=== PATIENT | female | born 1960 | race Caucasian/White ===

== ENCOUNTER 2018-10-26 09:16 | Inpatient (IN) | payer OTHER ==
[2018-10-26] VITALS (17 sets, daily range): BP systolic 81–143; BP diastolic 60–83
[~2018-10-26] VITALS: Ht 162.6 cm; Wt 91.2 kg
[2018-10-26] MEDS ORDERED: SODIUM CHLORIDE 0.9% 1000ML 1,000 ML IV STA (09:21)
[2018-10-26] MEDS ORDERED: ONDANSETRON HCL INJ 2MG/ML 2ML 2 MG/ML VIAL IV ONE ×2 (09:30→10:16)
[2018-10-26] MEDS ORDERED: ASPIRIN 81 MG CHEW TAB PO ONE ×3 (09:30→10:15)
--- NOTE | 2018-10-26 09:39 | NUR ---
DR. FLORES SPEAKING WITH DR. CHAVEZ REGARDING EKG
--- NOTE | 2018-10-26 09:39 | NUR ---
PATIENT PLACED ON BIPHASIC MONITOR
--- NOTE | 2018-10-26 09:40 | NUR ---
CATH TEAM ACTIVATED
[2018-10-26] MEDS ORDERED: CLOPIDOGREL BISULFATE 75 MG TAB PO STA (09:43)
[2018-10-26] MEDS ORDERED: ASPIRIN 325 MG TAB ONE (09:48)
[2018-10-26] MEDS ORDERED: CLOPIDOGREL BISULFATE 75 MG TAB ONE (09:51)
[2018-10-26] MEDS ORDERED: CLOPIDOGREL BISULFATE 300 MG TAB-DO NOT STOCK PO ONE ×2 (10:00→12:15)
--- NOTE | 2018-10-26 10:04 | NUR ---
ANJALI Keller AT BEDSIDE EVALUATING PATIENT AND DISCUSSING HEART CATHETERIZATION WITH PATIENT.
[2018-10-26 10:05] LABS: BASOPHILS % 0.2 % (0.0-1.0); HEMATOCRIT 44.3 % (34.2-44.1); HEMOGLOBIN 15.1 g/dL (12.0-16.0); LYMPHOCYTES # (AUTO) 1.2 (1.0-3.2); LYMPHOCYTES % 10.4 % (18.0-39.1); MEAN CORPUSCULAR HEMOGLOBIN 29.5 pg (28-32); MEAN CORPUSCULAR HGB CONC 34.1 g/dL (31-35); MEAN CORPUSCULAR VOLUME 86.5 fL (81-99); MONOCYTES # (AUTO) 0.2 (0.2-0.8); NEUTROPHILS # (AUTO) 9.6 (2.1-6.9); NEUTROPHILS % 86.9 % (38.7-80.0); PLATELET COUNT 280 x10e3/uL (140-360); RED BLOOD COUNT 5.12 x10e6/uL (3.6-5.1); RED CELL DISTRIBUTION WIDTH 13.4 % (11.7-14.4)
[2018-10-26 10:08] LABS: BILIRUBIN,URINE NEGATIVE (NEGATIVE); CLARITY,URINE CLEAR (CLEAR); COLOR,URINE YELLOW (YELLOW); LEUKOCYTE ESTERASE ,URINE NEGATIVE (NEGATIVE); NITRITE,URINE NEGATIVE (NEGATIVE); PROTEIN,URINE DIPSTICK TRACE (NEGATIVE); URINE UROBILINOGEN 0.2 mg/dL (0.2 - 1)
[2018-10-26 10:10] LABS: KETONES,URINE 2+ (NEGATIVE)
[2018-10-26 10:12] LABS: INR 0.89; PROTHROMBIN TIME 12.5 seconds (11.9-14.5)
[2018-10-26 10:13] LABS: PARTIAL THROMBOPLASTIN TIME 25.6 seconds (23.8-35.5)
[2018-10-26] MEDS ORDERED: MORPHINE SULFATE 2 MG/ML SYR 1ML IV PRN (10:15)
[2018-10-26] MEDS ORDERED: ONDANSETRON HCL INJ 2MG/ML 2ML 2 MG/ML VIAL IV PRN ×2 (10:15→12:00)
[2018-10-26] MEDS ORDERED: METOPROLOL TARTRATE 25 MG TAB PO SCH (10:15)
[2018-10-26] MEDS ORDERED: SODIUM CHLORIDE FLUSH 10 ML SYR INJ PRN (10:15)
[2018-10-26] MEDS ORDERED: NITROGLYCERIN 0.4 MG SUBL SL PRN (10:15)
--- NOTE | 2018-10-26 10:21 | NUR ---
YENY Sandoval, CONSULTING PROPERTY MANAGER AT BESIDE PREPARING PATIENT FOR CONSULTING PROPERTY MANAGER PATIENT ACTIVELY VOMITED 200 CC YELLOW EMESIS, AND HAS BEEN GIVEN ADDITIONAL ZOFRAN 4 MG
[2018-10-26 10:22] LABS: ALANINE AMINOTRANSFERASE 29 IU/L (0-55); ALBUMIN 4.7 g/dL (3.5-5.0); ALBUMIN/GLOBULIN RATIO 1.6 (0.8-2.0); ALKALINE PHOSPHATASE 86 IU/L (40-150); ANION GAP 21.9 mmol/L (8-16); BLOOD UREA NITROGEN 19 mg/dL (7-26); BUN/CREATININE RATIO 26 (6-25); CALCIUM 10.5 mg/dL (8.4-10.2); CARBON DIOXIDE 20 mmol/L (22-29); CHLORIDE 102 mmol/L (98-107); CREATINE KINASE 500 IU/L (29-168); CREATININE, SERUM 0.74 mg/dL (0.57-1.11); EST GLOMERULAR FILTRATION RATE > 60 ML/MIN (60-); GLUCOSE 142 mg/dL (74-118); POTASSIUM 3.9 mmol/L (3.5-5.1); SODIUM 140 mmol/L (136-145)
[2018-10-26 10:23] LABS: BACTERIA,URINE FEW /HPF; EPITHELIAL CELLS,URINE RARE /LPF; RBC,URINE >50 /HPF (0-5); WBC,URINE (MAN) 0-5 /HPF (0-5)
[2018-10-26] MEDS ORDERED: MIDAZOLAM HCL 2 MG/2 ML VIAL ONE (10:24)
--- NOTE | 2018-10-26 10:24 | Diagnostic Imaging Report ---
Examination: Single AP view of the chest. COMPARISON: None. INDICATION: Chest tightness, shortness of breath for 2 weeks IMPRESSION: 1. Lines and Tubes: None 2. Lungs are grossly clear. No consolidation or effusion. 3. Cardiomediastinal silhouette is normal. Pulmonary vasculature is normal. 4. No acute bony abnormalities. Signed by: Dr. Flo Zhu M.D. on 10/26/2018 10:20 AM
--- NOTE | 2018-10-26 10:24 | NUR ---
DR. ESPERANZA CHAVEZ AT [facility] SPEAKING WITH PATIENT
[2018-10-26] MEDS ORDERED: IOPAMIDOL 370 MG/ML 200 ML INFUS..BTL INJ ONE (10:25)
[2018-10-26] MEDS ORDERED: LIDOCAINE HCL 2% LOCAL 20 ML VIAL ONE (10:25)
[2018-10-26] MEDS ORDERED: HEPARIN SOD/SOD CHLORIDE 2,000 ML ONE (10:25)
[2018-10-26] MEDS ORDERED: FENTANYL CITRATE/PF 100MCG/2 ML INJ ONE (10:25)
--- OUTSIDE RECORDS SUMMARY | 2018-10-26 10:34 | XMS REPORT ---
Author Author [facility] Address Unknown Phone Unavailable Care Team Providers Care Anatomic Pathologist Name Role Phone Francisco FLORES Unavailable Unavailable Problems This patient has no known problems. Allergies, Adverse Reactions, Alerts This patient has no known allergies or adverse reactions. Medications This patient has no known medications. Results Test Description Test Time Test Comments Text Results Atomic Results Result Comments CHEST SINGLE (PORTABLE) 2018-10-26 10:20:00 [place] [id number] Patient Name: STEWART BUCIO MR #: [id number] : 1960 Age/Sex: 58/F Req #: [id number] Adm Physician: Ordered by: ALIZA FLORES MD Report #: [id number] Location: ER Room/Bed: Procedure: [id number] DX/CHEST SINGLE (PORTABLE) Exam Date: 10/26/18 Exam Time: 45 REPORT STATUS: Signed Examination: Single AP view of the chest. COMPARISON: None. INDICATION: Chest tightness, shortness of breath for 2 weeks IMPRESSION: 1. Lines and Tubes: None 2. Lungs are grossly clear. No consolidation or effusion. 3. Cardiomediastinal silhouette is normal. Pulmonary vasculature is normal. 4. No acute bony abnormalities. Signed by: Dr. Millicent Zhu M.D. on 10/26/2018 10:20 AM Dictate d By: MILLICENT ZHU MD 1020 Transcribed By: ROCAEL on 10/26/18 1020 COPY TO: ALIZA FLORES MD
[2018-10-26 10:48] LABS: CHOL/HDL RATIO 3.3 (3.0-3.6)
[2018-10-26] MEDS ORDERED: BIVALRIUDIN 250 MG/VIAL VIAL IV ONE (10:48)
[2018-10-26] MEDS ORDERED: SODIUM CHLORIDE 0.9% 50ML 50 ML ONE (10:49)
[2018-10-26] MEDS ORDERED: EPTIFIBATIDE 75mg 100ML 100 ML ONE ×3 (10:55→23:35)
[2018-10-26] MEDS ORDERED: EPTIFIBATIDE 20 ML ONE (10:55)
[2018-10-26] MEDS ORDERED: METOCLOPRAMIDE HCL 10 MG/2ML VIAL ONE (11:00)
[2018-10-26] MEDS ORDERED: ONDANSETRON HCL INJ 2MG/ML 2ML 2 MG/ML VIAL ONE (11:07)
[2018-10-26] MEDS ORDERED: HYDROCODONE/APAP 5MG-325MG TAB PO PRN (12:00)
[2018-10-26] MEDS: SODIUM CHLORIDE 0.9% 1000ML 1,000 ML IV SCH (12:00)
[2018-10-26] MEDS ORDERED: EPTIFIBATIDE 2 MG/1 ML 10ML VIAL IV ONE (12:00)
[2018-10-26] MEDS ORDERED: CLOPIDOGREL BISULFATE 75 MG TAB PO ONE (12:00)
--- NOTE | 2018-10-26 12:10 | NUR ---
Received patient from Broaching Machine Set Up Operator and received bedside report from KIKA White. Patient is awake, alert and Ox4. Respirations are even and unlabored. Dressing to right groin is dry and intact. Pedal pulses to right and left lower extremities are palpable and strong at 2+ and feet are pink and warm with brisk capillary refill. Patient denies any pain and says that her nausea is subsiding. Instructed to keep right leg straight and will be on bedrest for the next 6 hours until 18:00.
[2018-10-26] MEDS ORDERED: METOCLOPRAMIDE HCL 10 MG/2ML VIAL IV SCH (14:00)
[2018-10-26] MEDS ORDERED: METOCLOPRAMIDE HCL 10 MG/2ML VIAL IV PRN (14:15)
--- NOTE | 2018-10-26 15:45 | Consultation ---
DATE OF CONSULTATION: 10/26/2018 Cardiology Consultation REASON FOR CONSULTATION: Chest pain and acute FL. HISTORY OF PRESENT ILLNESS: Ms. Ramires is a 58-year-old lady with COPD, smoker, and obesity, who does not seek medical attention. She has been having three-month history of escalating typical angina symptoms and started having class IV angina for the last couple of days. She had relentless substernal chest pressure overnight and presented to this emergency room with ongoing chest pain. Acute FL activation was called and was found to have 100% thrombotic mid RCA lesion. She described her pain as a substernal chest pressure, tightness, heaviness, radiating up into her neck, associated with nausea, diaphoresis, and multiple episodes of vomiting. She underwent PCI with revascularization of the culprit mid RCA lesion without any issues. She left the table in fair condition on Integrilin infusion back to the ICU. The patient reports just some nausea, but the pain is largely subsided. PAST MEDICAL HISTORY: COPD, smoker. PAST SURGICAL HISTORY: Denies. FAMILY HISTORY: Mother and father had heart disease in their late 60s to 70s. SOCIAL HISTORY: She is a smoker, currently half pack per day. Denies any alcohol or illicit drug use. ALLERGIES: NO KNOWN DRUG ALLERGIES. HOME MEDICATIONS: None. REVIEW OF SYSTEMS: GENERAL: Denies any fevers, chills, or weight changes. HEENT: No headaches, visual complaints, sore throat, or stuffy nose. RESPIRATORY: Denies any pleuritic chest pain. Positive for shortness of breath with chest pain symptoms above. CARDIOVASCULAR: As per HPI. Denies any palpitations, syncope, or near syncope. GI: Denies any abdominal pain. Positive for nausea and vomiting. Denies any bright red blood per rectum, melena, or hematemesis. HEMATOLOGIC: No easy bruising or bleeding. ID: No known infectious issues. : Positive for urinary frequency. No hematuria. MUSCULOSKELETAL: She has some arthritis in her legs. SKIN: No breakdowns. NEUROLOGIC: Denies any focal weakness, numbness, tingling, seizures, headaches, TIA, or stroke. Remainder review of systems negative, otherwise as mentioned. PHYSICAL EXAMINATION: VITAL SIGNS: Height of 64 inches, weight of 194 pounds, BMI is 33.3. Temperature 98.0, pulse 52, respiratory rate 20, blood pressure 152/74, and O2 saturation 100% on room air. GENERAL: This is a well-nourished, well-developed lady, who is currently in no distress, post PCI. HEENT: Normocephalic and atraumatic. Pupils are equal, round, and reactive to light. Extraocular movements are intact. Oropharynx is clear. NECK: No elevation of jugular venous pulsation. No carotid bruits. CARDIOVASCULAR: Regular rate and rhythm. Normal S1 and S2. Soft 2/6 systolic murmur at the left lower sternal border. LUNGS: With poor air flow throughout the lung puente and diminished air entry compatible with COPD type changes. ABDOMEN: Soft, nontender, and obese. Normoactive bowel sounds. No hepatosplenomegaly. BACK: No costovertebral angle tenderness. EXTREMITIES: Warm with 1 to 2+ bilateral femoral pulses, 0 to 1+ pedal pulses, radial pulses absent on the right, 1+ right ulnar, and diminished left wrist pulses. NEUROLOGIC: Cranial nerves II through XII are intact. Strength is 5/5. Grossly nonfocal. PSYCHIATRIC: Normal fluent speech. Appropriate affect. No anxiety or delusions. LABORATORY DATA: White count 11, hemoglobin 15.1, hematocrit 44.3, and platelets of 280. Sodium 140, potassium 3.9, chloride 102, bicarb 20, BUN 19, creatinine 0.74, glucose of 142, calcium of 10.5, AST 52, ALT 29, alkaline phosphatase 86, total protein of 7.7, albumin of 4.7, CK is 500, MB is 92, and troponin is 1.96. Lipid profile show triglycerides of 74, HDL of 53, and LDL of 106. Amylase 37 and lipase 13. INR 0.89. UA shows greater than 50 red cells. EKG reveals normal sinus rhythm, maybe early inferior ST-elevation changes. Heart catheterization showed 100% mid RCA occlusion with successful revascularization. LAD shows 50% disease, prox and mid and circumflex artery shows 60% proximal OM1 lesion. DIAGNOSES: 1. Acute inferior myocardial infarction, status post revascularization of the culprit right coronary artery with implantation of a drug-eluting stent. 2. Chronic obstructive pulmonary disease, smoker. 3. Likely hypertension based on vitals. 4. Hypercholesteremia. PLAN/RECOMMENDATIONS: 1. Aspirin and Plavix therapy. 2. Statin therapy. 3. Titrate on beta-ly therapy as tolerated. 4. Six-hour bedrest. 5. Integrilin infusion overnight. 6. Telemetry monitoring. 7. Counseled to quit smoking. 8. Aggressive risk factor modification and medical therapy. MD LUCA Wilson/PRATIBHA /[id number]
[2018-10-26] MEDS: METOPROLOL TARTRATE 25 MG TAB PO SCH (17:00)
--- NOTE | 2018-10-26 19:01 | Operative Report ---
DATE OF PROCEDURE: 10/26/2018 SURGEON: Lauren Cunningham MD PROCEDURES PERFORMED: 1. Left heart cardiac catheterization with coronary angiography. 2. Left ventriculography. 3. Primary percutaneous coronary intervention after aspiration thrombectomy followed by implantation of a drug-eluting stent to the mid right coronary artery. 4. Angio-Seal closure of the right common femoral arteriotomy. INDICATION FOR PROCEDURE: A 58-year-old lady with history of COPD and heavy smoker, who presents to this institution after 3-month history of escalating substernal chest pressure, tightness, and heaviness, brought on with minimal exertion and started having rest chest pain. She has had ongoing chest pain since last night, recurrent nausea, vomiting, and basically presents with continuous chest pain symptoms on a late presentation. EKG showed borderline inferior ST elevations and code STEMI was activated by lab. Due to waiting for staffing for the case, we finally were able to proceed with heart catheterization. DESCRIPTION OF PROCEDURE: The patient was brought to the cardiac catheterization laboratory in an emergent fashion. The right groin was prepped and draped in usual sterile fashion. Lidocaine solution 1% was used to numb the right groin region and access of the right femoral artery was obtained and a 4-Norwegian femoral sheath was placed. Selective coronary angiography of the [place] left and right coronary artery was performed with JL4 and 3DRC diagnostic catheters. Angled pigtail catheter was placed in the ventricle for ventriculography and hemodynamic assessment of ventricular filling pressures. There was noted 100% mid RCA thrombotic occlusion. We upsized to a 6-Norwegian femoral sheath and IV Angiomax bolus given for systemic anticoagulation. The patient was already premedicated with aspirin and Plavix prior to coming to the lab. Integrilin boluses and infusion were initiated. Utilizing a 6-Norwegian 3DRC guiding catheter, we selected the right coronary ostia. Utilizing 180 cm Runthrough guidewire, we crossed the lesion. We went with a Pronto LP aspiration thrombectomy catheter achieving a total revascularization of 71 minutes. We predilated the underlying lesion, which was a 99% heavily calcified stenosis with an Emerge 2.0 x 15 mm balloon inflations up to 15 atmospheres of pressure to heal the lesion. We then took a Resolute nick 2.5 x 30 mm drug-eluting stent deployed that up to 12 atmospheres of pressure. Final angiography revealed 0% residual stenosis and improvement in flow from SANDRA-0 to SANDRA-3 and no complications. At the conclusion of the case, femoral angiogram was performed revealing femoral artery stick and a 6-Norwegian Angio-Seal closure device successfully deployed achieving hemostasis. COMPLICATIONS: None. ESTIMATED BLOOD LOSS: Minimal. FINDINGS: 1. Left main is angiographically normal, gives rise to an LAD and circumflex branch. 2. LAD has 40% stenosis proximally followed by 50% mid LAD stenosis. Remainder of this vessel is mildly and diffusely diseased. 3. Left circumflex artery gives rise to a large OM1 branch and a small bifurcating OM2 branch. There is a 60% proximal OM1 stenosis. 4. RCA is dominant, it gives rise to right PDA and right PLV. There is 100% occlusion in the mid aspect of this vessel. This is the culprit lesion. 5. Left ventricular ejection fraction is 45% with inferobasal and inferior wall hypokinesis. End-diastolic pressure is 14 mmHg. There is no significant LV to aortic pullback gradient. EF is 45%. INTERVENTION SUMMARY: Successful treatment of 100% thrombotic mid RCA occlusion with aspiration thrombectomy followed by implantation of a Resolute Nick 2.5 x 30 mm drug-eluting stent deployed up to 12 atmospheres of pressure, resulting in 0% residual stenosis and improvement of flow from SANDRA-0 to SANDRA-3 and no complications. PLAN/RECOMMENDATIONS: 1. Aspirin and Plavix therapy. 2. Statin therapy. 3. Aggressive risk factor modification and medical therapy. 4. Integrilin infusion overnight. 5. ICU for further care and management. MD LUCA Wilson/PRATIBHA /[id number]
[2018-10-26] MEDS ORDERED: SIMVASTATIN 20 MG TAB PO SCH (21:00)
[2018-10-26] MEDS ORDERED: ATORVASTATIN 20 MG TAB PO SCH (21:00)
[2018-10-27] VITALS (13 sets, daily range): BP systolic 112–135; BP diastolic 62–97
[2018-10-27 05:17] LABS: BASOPHILS % 0.3 % (0.0-1.0); EOSINOPHILS % 0.1 % (0.0-6.0); HEMATOCRIT 37.3 % (34.2-44.1); HEMOGLOBIN 12.5 g/dL (12.0-16.0); LYMPHOCYTES % 25.7 % (18.0-39.1); MEAN CORPUSCULAR HEMOGLOBIN 29.3 pg (28-32); MEAN CORPUSCULAR HGB CONC 33.5 g/dL (31-35); MEAN CORPUSCULAR VOLUME 87.6 fL (81-99); MONOCYTES # (AUTO) 0.8 (0.2-0.8); NEUTROPHILS # (AUTO) 7.9 (2.1-6.9); NEUTROPHILS % 66.6 % (38.7-80.0); PLATELET COUNT 205 x10e3/uL (140-360); RED BLOOD COUNT 4.26 x10e6/uL (3.6-5.1)
[2018-10-27 05:36] LABS: ALANINE AMINOTRANSFERASE 41 IU/L (0-55); ALBUMIN 3.6 g/dL (3.5-5.0); ALBUMIN/GLOBULIN RATIO 1.6 (0.8-2.0); ALKALINE PHOSPHATASE 65 IU/L (40-150); ANION GAP 11.4 mmol/L (8-16); BLOOD UREA NITROGEN 13 mg/dL (7-26); BUN/CREATININE RATIO 20 (6-25); CALCIUM 8.7 mg/dL (8.4-10.2); CARBON DIOXIDE 22 mmol/L (22-29); CHLORIDE 107 mmol/L (98-107); CREATININE, SERUM 0.64 mg/dL (0.57-1.11); EST GLOMERULAR FILTRATION RATE > 60 ML/MIN (60-); GLUCOSE 121 mg/dL (74-118); POTASSIUM 3.4 mmol/L (3.5-5.1); SODIUM 137 mmol/L (136-145)
[2018-10-27 05:47] LABS: CHOL/HDL RATIO 3.1 (3.0-3.6)
[2018-10-27] MEDS: SODIUM CHLORIDE 0.9% 1000ML 1,000 ML IV SCH (06:17)
[2018-10-27] MEDS: METOPROLOL TARTRATE 25 MG TAB PO SCH (08:14)
[2018-10-27] MEDS ORDERED: ASPIRIN 81 MG ENTERIC COATED PO SCH (09:00)
[2018-10-27] MEDS ORDERED: CLOPIDOGREL BISULFATE 75 MG TAB PO SCH (09:00)
[2018-10-27] MEDS ORDERED: LIPITOR20 MG PO (09:17)
[2018-10-27] MEDS ORDERED: LOPRESSOR25 MG PO (09:17)
[2018-10-27] MEDS ORDERED: SIMVASTATIN20 MG PO (09:17)
[2018-10-27] MEDS ORDERED: ASPIRIN EC81 MG PO (09:17)
[2018-10-27] MEDS ORDERED: PLAVIX75 MG PO (09:17)
[2018-10-27] MEDS ORDERED: POTASSIUM CHLORIDE 20 MEQ TAB CR PO ONE (10:00)
--- NOTE | 2018-10-27 12:15 | NUR ---
PATIENT DISCHARGED AT THIS TIME RX GIVEN EDUCATION AND F/U INSTRUCTIONS. R GROIN SITE OPEN TO AIR, NO S/S OF HEMATOMA ASSESSED AT BEDSIDE. IV DC'C SECURED WITH 4X4 GAUZE AND TAPE.
--- NOTE | 2018-10-27 21:47 | Discharge Summary ---
ADMISSION DIAGNOSES: ST-elevation myocardial infarction, morbid obesity, hypokalemia, tobacco use. DISCHARGE DIAGNOSES: ST-elevation myocardial infarction, morbid obesity, hypokalemia, tobacco use, RCA stent. HISTORY: None. SURGICAL HISTORY: None. FAMILY HISTORY: The patient's mother and father had heart disease. The patient's grandmother had diabetes. The patient's grandfather had cancer. SOCIAL HISTORY: The patient admits to smoking about half a pack of cigarettes a day. HOSPITAL COURSE: A 58-year-old female admits with worsening chest pain over the last 3 months. She came to the ER when her substernal chest pain continued. In the ER, code STEMI was called and the patient was taken to laboratory tester with Dr. Cunningham. She was found to have 100% thrombotic mid RCA lesion. She had a PCI with revascularization, mid RCA without any issues. Integrilin was then started. EKG showed sinus bradycardia at 52 with possible STEMI. Echo showed an EF of 50% with trace MR and TR. Chest x-ray was negative. Vital signs stable. The patient will discharge home with new prescriptions for Plavix, Lipitor, and aspirin per Cardiology recommendations. She will follow up with primary care in 1 to 2 weeks and Cardiology as discussed. The patient and daughter understand discharge instructions and agrees to plan. Vital signs stable, the patient afebrile. Dictated by Breanna De La Paz NP MD SARAH Lewis/MODL /[id number]
== END 2018-10-27 13:00 | disposition home or self-care (01) | DRG 247 ==
LOC: ER 09:16 → CATH LAB 10:33 → ICU 11:45
PROVIDERS: ADMIT Internal Medicine; ATTEND Internal Medicine
PROC: 027034Z Dilation of Coronary Artery, One Artery with Drug-eluting Intraluminal Device, Percutaneous Approach (ICD-10-PCS; principal; 2018-10-26)
PROC: 02C03ZZ Extirpation of Matter from Coronary Artery, One Artery, Percutaneous Approach (ICD-10-PCS; 2018-10-26)
PROC: 4A023N7 Measurement of Cardiac Sampling and Pressure, Left Heart, Percutaneous Approach (ICD-10-PCS; 2018-10-26)
PROC: B2111ZZ Fluoroscopy of Multiple Coronary Arteries using Low Osmolar Contrast (ICD-10-PCS; 2018-10-26)
PROC: B2151ZZ Fluoroscopy of Left Heart using Low Osmolar Contrast (ICD-10-PCS; 2018-10-26)
DX: I21.19 ST elevation (STEMI) myocardial infarction involving other coronary artery of inferior wall (principal); I10 Essential (primary) hypertension; J44.9 Chronic obstructive pulmonary disease, unspecified; F17.210 Nicotine dependence, cigarettes, uncomplicated; Z68.34 Body mass index [BMI] 34.0-34.9, adult; E87.6 Hypokalemia; E78.5 Hyperlipidemia, unspecified; E66.01 Morbid (severe) obesity due to excess calories
CPT/HCPCS: 36415; 71045; 80053; 80061; 81001; 82150; 82550; 82553; 83690; 84484; 85025; 85610; 85730; 92928; 92973; 93005; 93306; 93458; 99285; C1757; C1760; C1766; C1874; J0583; J1327; J2001; J2250; J2405; J2765; J3010; J7030; Q9967